=== PATIENT | male | born 1990 | race Asian ===

== ENCOUNTER 2020-01-19 09:41 | Emergency (ER) | payer BC ==
[~2020-01-19] VITALS: Ht 172.7 cm; Wt 92.0 kg
[2020-01-19 09:47] VITALS: BP 143/94
[2020-01-19] MEDS ORDERED: ACETAMINOPHEN 325 MG TABLET PO ONE (10:30)
[2020-01-19] MEDS ORDERED: IBUPROFEN 600 MG TABLET PO ONE (10:30)
[2020-01-19] MEDS ORDERED: ACETAMINOPHEN 325 MG TABLET ONE (10:36)
[2020-01-19] MEDS ORDERED: IBUPROFEN 600 MG TABLET ONE (10:36)
== END 2020-01-19 10:57 | disposition home or self-care (01) ==
LOC: ED 10:46
DX: J02.9 Acute pharyngitis, unspecified (principal)
CPT/HCPCS: 87081; 87880; 99283

== ENCOUNTER 2020-01-23 09:03 | Emergency (ER) | payer BC ==
[~2020-01-23] VITALS: Ht 172.7 cm; Wt 90.0 kg
[2020-01-23 10:02] VITALS: BP 130/88
== END 2020-01-23 11:15 | disposition home or self-care (01) ==
LOC: ED 09:39
DX: B02.9 Zoster without complications (principal)
CPT/HCPCS: 99283